=== PATIENT | male | born 1995 | race Caucasian/White ===

== ENCOUNTER 2019-10-13 01:03 | Emergency (ER) | payer SELFPAY ==
[~2019-10-13] VITALS: Ht 160 cm; Wt 61.2 kg
[2019-10-13 01:15] VITALS: BP 140/85
== END 2019-10-13 02:40 | disposition left against medical advice (07) ==
LOC: ER 01:05
DX: K08.89 Other specified disorders of teeth and supporting structures (principal); Z53.21 Procedure and treatment not carried out due to patient leaving prior to being seen by health care provider